=== PATIENT | male | born 1935 ===

== ENCOUNTER → 2018-06-03 18:59 | Outpatient (REF) | payer MEDICARE, OTHER, SELFPAY ==
[2018-06-03 19:23] LABS: Add Manual Diff / Slide Review NO; Basophils Absolute Auto 100 /uL (0-100); Basophils Percent Auto 1.9 % (0-2); Eosinophils Absolute Auto 300 /uL (0-450); Hematocrit 45.1 % (41-53); Lymphocytes Absolute Auto 2200 /uL (1100-4500); Lymphocytes Percent Auto 35.3 % (25-40); Mean Corpuscular HGB Conc 33.2 % (30-36); Mean Corpuscular Hemoglobin 28.8 PG (26-34); Mean Corpuscular Volume 86.6 fL (80-100); Monocytes Absolute Auto 600 /uL (0-900); Monocytes Percent Auto 9.8 % (3-14); Neutrophils Absolute Auto 3000 /uL (1500-7000); Platelet Count 233 X10^3/uL (150-400); Red Cell Distribution Width 14.1 % (11.6-14.8); White Blood Cell Count 6.3 X10^3/uL (4.5-11.0)
[2018-06-03 19:29] LABS: Alanine Aminotransferase 27 IU/L (21-72); Albumin 4.1 g/dL (3.5-5.0); Albumin Globulin Ratio 1.6 (1.0-2.8); Alkaline Phosphatase 102 U/L (38-126); Aspartate Aminotransferase 28 IU/L (17-59); Bilirubin Total 1.2 mg/dL (0.2-1.3); Blood Urea Nitrogen 16 mg/dL (9-20); Calcium 9.3 mg/dL (8.4-10.2); Carbon Dioxide 26 mmol/L (22-32); Chloride 103 mmol/L (98-107); Cholesterol 161 mg/dL (140-199); Estimated Glomerular Filt Rate > 60.0 mL/min (>60); Globulin 2.6 g/dL (1.7-4.1); Glucose 103 mg/dL (80-110); HDL Cholesterol 41 mg/dL (40-60); HEMOLYSIS < 15 (0-50); LDL Cholesterol Calculated 95 mg/dL (<100); Potassium 4.4 mmol/L (3.4-5.1); Sodium 139 mmol/L (137-145); Total Protein 6.7 g/dL (6.3-8.2); Triglycerides 123 mg/dL (35-150)
[2018-06-03 19:41] LABS: Hemoglobin A1C% w Est Avg Glu 6.4 % (4.0-6.0)
[2018-06-03 19:44] LABS: T4 Total Thyroxine 9.58 ug/dL (5.5-11.0); T7 (Free Thyroxine Index) 2.88 (1.65-3.89); Triiodothryronine T3 Uptake 30.1 % (23.5-40.5)
[2018-06-03 19:56] LABS: Prostate Specific Antigen 0.563 ng/mL (0.10-4.00)
[2018-06-03 19:57] LABS: Thyroid Stimulating Hormone 2.13 uIU/mL (0.47-4.68)
[2018-06-05 07:06] LABS: Uric Acid 6.3 mg/dL (3.5-8.5)
== END ==
LOC: LAB 18:59
PROVIDERS: PCP Family Medicine Geriatric Medicine; Visit Provider Family Medicine Geriatric Medicine
DX: E78.5 Hyperlipidemia, unspecified (principal); D40.0 Neoplasm of uncertain behavior of prostate; I10 Essential (primary) hypertension; M10.09 Idiopathic gout, multiple sites; E03.9 Hypothyroidism, unspecified
CPT/HCPCS: 36415; 80053; 80061; 83036; 84153; 84436; 84443; 84479; 84550; 85025